=== PATIENT | male | born 1975 | race Caucasian/White ===

== ENCOUNTER 2017-03-30 00:07 | Emergency (ER) | payer OTHER ==
[2017-03-30 00:45] LABS: Hematocrit 49.1 % (42.0-52.0); Hemoglobin 15.1 gm/dL (13.5-18.0); Mean Cell Volume 92.8 fl (78-100); Mean Corpuscular Hemoglobin 28.5 pg (27-31); Mean Corpuscular Hgb Conc 30.8 g/dl (32-36); Mean Platelet Volume 10.2 fl (6.0-9.5); Platelet Count 242 K/mm3 (150-450); Prothrombin Time (Patient) 10.9 Seconds (9.4-11.4); Red Blood Count 5.29 M/mm3 (4.7-6.0); Red Cell Distribution Width 12.6 % (11.5-14.0); White Blood Count 12.8 K/mm3 (4.0-10.5)
[2017-03-30 00:46] LABS: INR 1.05 INR (0.90-1.10); Partial Thrombolplastin Time 29.8 Seconds (24-32); Total Cells Counted 100
[2017-03-30 00:50] LABS: Anion Gap 24.1 mmol/L (6.8-13.8); BUN/Creatinine Ratio 11.2 (9.0-21.6); Bilirubin, Total 0.3 mg/dL (0.0-1.1); Ca. Corrected For Albumin 9.5 mg/dL (8.4-10.2); Carbon Dioxide 19.5 mmol/L (24-32.6); Potassium 3.6 mmol/L (3.4-4.6); Total Protein 6.3 gm/dL (6.2-8.2); Troponin I 0.043 ng/ml (0.00-0.10)
--- NOTE | 2017-03-30 01:09 | ERNOTE ---
CARDIAC HPI - Narrative Date of Service: 03/29/17 - General Stated Complaint:: Unresponsive pt with witnessed arrest approx 40 min EXTERMINATOR TERMITE. Time Seen by Provider: 03/30/17 00:07 Source: patient Exam Limitations: clinical condition - History of Present Illness Initial Comments: Pt came out of the shower and lay down on the bed. He gasped and went unresponsive. began CPR immediately and called EMS. upon arrival EMS found V-fib and defibrillation was performed. A bassem airway was placed and Luc[employer] automated CPR device used. EMS report defibrillation 5 times and 5 doses of epinephrine prior to arriving in our facility as well as one dose of lidocaine. Upon arrival pt is in asystole Timing/Duration: other - 40 minutes Severity: severe Activities at Onset: other - Just after getting out of the shower. Review of Systems - Narrative Narrative: Family denies any known symptoms prior to this event. - Patient's Past Medical History Patient History - Medical: No pertinent hx Patient History - Cardiac/Respiratory: No pertinent hx Patient History - Cancer: No Hx of Cancer - Social History Living Situations: home CP Exam - Physical Exam General Appearance: Present: other - Unresponsive to any stimuli Eyes, Ears, Nose, Throat Exam: Present: other - vomitus in the Bassem airway. Head is somwhat cyanotic Neck: Present: supple Respiratory: Present: decreased breath sounds Gastrointestinal/Abdominal: Present: distended Extremity: Present: no pedal edema Neurologic: Present: other - unresponsive Skin Exam: Present: other - head and neck are cyanotic ED Progress - PROGRESS/REASSESSMENT Condition: Unchanged Progress Note-Subjective: 03/30/17 01:09 Pt remained in asystole and head was cyanotic. Bassem airway was removed and replaced with 8 fr ET tube after 3rd attempt. No improvement in oxygenation after intubation. Continued to be in asystole through CPR and 15 doses of epinephrine. Please see code blue documentation for specifics. I spoke with the family and explained the situation and that I felt that we have done all that we could do. Family expressed understanding. Code was called at 00:36 TOD. 03/30/17 01:21 Spoke with the vehicle trimmer and explained the situation. He will come to assess the situation directly and decide if autopsy is necessary. - RESULTS AND ORDERS Patient's Lab Results:: I have reviewed the patient's lab results. Results and Orders: Abnormal/Pending Laboratory Last 24 HRS 03/30/17 03/30/17 00:20 00:20 WBC 12.8 H MCHC 30.8 L MPV 10.2 H Sodium 145 H Plasma Sodium 147 H Carbon Dioxide 19.5 L Anion Gap 24.1 H Creatinine 1.61 H Est GFR (Non-Af Amer) 51 L Random Glucose 232 H AST 197 H ALT 298 H Albumin 3.0 L 03/30/17 04:20 Laboratory Tests 03/30/17 03/30/17 03/30/17 00:20 00:20 00:20 WBC 12.8 H Hgb 15.1 Hct 49.1 Plt Count 242 PT 10.9 INR (Anticoag Therapy) 1.05 PTT (Jimi) 29.8 Sodium 145 H Potassium 3.6 Chloride 105 Carbon Dioxide 19.5 L Anion Gap 24.1 H BUN 18 Creatinine 1.61 H Est GFR (Non-Af Amer) 51 L BUN/Creatinine Ratio 11.2 Random Glucose 232 H Calcium 9.0 Total Bilirubin 0.3 AST 197 H ALT 298 H Alkaline Phosphatase 111 Troponin I 0.043 Total Protein 6.3 Albumin 3.0 L - X-Ray X-Ray #1 XRAY: chest X-Ray Interpretation: Reviewed by me X-Ray Comments: CXR X 3 post intubation. #1 ET tube in right mainstem bronchus #2 ET tube pulled back but still in right mainstem #3 ET tube just above the joaquin. vascular crouding noted bilateral lungs, poor inspiration. No pneumothorax or infiltrate ED Procedures - Intubation Intubation Method: endotrachial with venti Tube Size (cm): 8.0 Medications: Other - rocuronium Breath Sounds after Intubation: right greater than left - CXR showed ET tube in the right mainstem. Tube pulled back x 2 and repeat CXR confirmed ET tube tip above the joaquin Intubation Complications: oral-unsuccessful attempt - x2 as cords were very anterior Post Intubation Xray: Yes Departure - Departure Clinical Impression: Cardiac arrest with ventricular fibrillation Disposition: Condition: - Critical Care Total Time (mins): 89
[2017-03-30 01:17] LABS: Atypical (Reactive) Lymph 1 % (0-2); Basophil 1 % (0-1); Eosinophil 3 % (0-3); Immature Granulocyte 5 (0-1); Lymphocyte 68 % (20-51); Monocyte 3 % (0-9); Neutrophil 19 % (42-75); Neutrophil # 2.4 K/mm3 (1.3-6.0)
[2017-03-30 01:18] LABS: Dohle Bodies 1+; Giant Platelets Trace; Platelet Estimate Normal (NORMAL); Target Cells Trace
== END 2017-03-30 03:30 | disposition expired ==
LOC: ER 00:07
PROC: 5A12012 Performance of Cardiac Output, Single, Manual (ICD-10-PCS; principal; 2017-03-30)
PROC: 0BH17EZ Insertion of Endotracheal Airway into Trachea, Via Natural or Artificial Opening (ICD-10-PCS; 2017-03-30)
DX: I25.10 Atherosclerotic heart disease of native coronary artery without angina pectoris (principal); I11.9 Hypertensive heart disease without heart failure; I51.7 Cardiomegaly; I12.9 Hypertensive chronic kidney disease with stage 1 through stage 4 chronic kidney disease, or unspecified chronic kidney disease; N18.9 Chronic kidney disease, unspecified; I70.0 Atherosclerosis of aorta; I65.09 Occlusion and stenosis of unspecified vertebral artery; I65.1 Occlusion and stenosis of basilar artery; E66.9 Obesity, unspecified; Z68.36 Body mass index [BMI] 36.0-36.9, adult; Q23.1 Congenital insufficiency of aortic valve; J43.9 Emphysema, unspecified; S20.319A Abrasion of unspecified front wall of thorax, initial encounter; S20.219A Contusion of unspecified front wall of thorax, initial encounter; M84.48XA Pathological fracture, other site, initial encounter for fracture; Z90.89 Acquired absence of other organs; Z72.0 Tobacco use